=== PATIENT | female | born 1990 | race African-American/Black ===

== ENCOUNTER 2022-02-24 18:53 | Emergency (ER) | payer OTHER ==
[2022-02-24 19:21] VITALS: BP 111/60; PULSE 60; TEMP 98.6; BMI 21.4
[2022-02-24] MEDS ORDERED: SODIUM CHLORIDE 1,000 ML ONE (19:27)
[2022-02-24] MEDS ORDERED: KETOROLAC TROMETHAMINE 30 MG/1 ML VIAL IVPUSH ONE (19:27)
[2022-02-24] MEDS ORDERED: METOCLOPRAMIDE HCL INJECTION 10 MG/2 ML VIAL IVPB ONE (19:28)
[2022-02-24] MEDS ORDERED: KETOROLAC TROMETHAMINE 30 MG/1 ML VIAL ONE (19:47)
[2022-02-24] MEDS ORDERED: METOCLOPRAMIDE HCL INJECTION 10 MG/2 ML VIAL ONE (19:47)
[2022-02-24 20:33] LABS: ALBUMIN 3.8 g/dl (3.4-5.0); BILIRUBIN,TOTAL 0.6 mg/dl (0.2-1); CREATININE 0.9 mg/dl (0.55-1.3); TOT PROT 6.8 g/dl (6.4-8.2)
[2022-02-24] MEDS ORDERED: ALPRAZolam 1 MG TABLET PO PRN (20:44)
[2022-02-24 20:47] LABS: HEMATOCRIT 34.3 % (32.4-45.2); HEMOGLOBIN 11.9 G/dL (10.7-15.3); MCH 32.4 pg (25.7-33.7); MCHC 34.5 g/dl (32.0-36.0); MEAN CELL VOLUME 93.6 fl (80-96); MEAN PLT VOLUME 7.9 fl (7.5-11.1); RBC 3.66 10^6/uL (3.60-5.2); WHITE BLOOD COUNT 8.6 10^3/uL (4.0-10.8)
[2022-02-24 20:57] LABS: PLATELET ESTIMATE ADEQUATE
== END 2022-02-24 21:13 | disposition home or self-care (01) ==
LOC: FER 18:53
PROC: 3E033GC Introduction of Other Therapeutic Substance into Peripheral Vein, Percutaneous Approach (ICD-10-PCS; principal; 2022-02-24)
DX: R10.30 Lower abdominal pain, unspecified (principal)
CPT/HCPCS: 36415; 80053; 85025; 99284-25

== ENCOUNTER 2022-03-24 12:04 | Emergency (ER) | payer OTHER ==
[2022-03-24] MEDS ORDERED: KETOROLAC TROMETHAMINE 60 MG/2 ML VIAL IM ONE (12:37)
[2022-03-24] MEDS ORDERED: KETOROLAC TROMETHAMINE 60 MG/2 ML VIAL ONE (12:44)
[2022-03-24 12:48] VITALS: BP 120/50; PULSE 72; RESP 18; TEMP 98.4; BMI 20.9
== END 2022-03-24 13:40 | disposition home or self-care (01) ==
LOC: FER 12:04
PROC: 3E0233Z Introduction of Anti-inflammatory into Muscle, Percutaneous Approach (ICD-10-PCS; principal; 2022-03-24)
DX: N94.6 Dysmenorrhea, unspecified (principal)
CPT/HCPCS: 99283-25

== ENCOUNTER 2022-04-19 16:10 | Emergency (ER) | payer OTHER ==
[2022-04-19 17:48] VITALS: BP 116/60; PULSE 55; RESP 18; TEMP 98; BMI 22.3
[2022-04-19] MEDS ORDERED: KETOROLAC TROMETHAMINE 60 MG/2 ML VIAL IM ONE (17:50)
[2022-04-19] MEDS ORDERED: KETOROLAC TROMETHAMINE 60 MG/2 ML VIAL ONE (18:08)
== END 2022-04-19 18:34 | disposition home or self-care (01) ==
LOC: FER 16:10
PROC: 3E0233Z Introduction of Anti-inflammatory into Muscle, Percutaneous Approach (ICD-10-PCS; principal; 2022-04-19)
DX: N94.3 Premenstrual tension syndrome (principal)
CPT/HCPCS: 81003; 81015; 84703; 99284-25

== ENCOUNTER 2022-05-16 07:21 | Emergency (ER) | payer OTHER ==
[2022-05-16 07:28] VITALS: BP 105/54; PULSE 54; RESP 19; TEMP 98; BMI 22.3
[2022-05-16] MEDS ORDERED: SODIUM CHLORIDE 1,000 ML IV STA (07:35)
[2022-05-16] MEDS ORDERED: KETOROLAC TROMETHAMINE 30 MG/1 ML VIAL IVPUSH ONE (07:35)
[2022-05-16] MEDS ORDERED: FAMOTIDINE 20 MG/50 ML IVPB 20 MG/50 ML MG IVPB ONE ×2 (07:36→07:45)
[2022-05-16] MEDS ORDERED: ONDANSETRON 4 MG/2 ML VIAL IVPB ONE (07:36)
[2022-05-16] MEDS ORDERED: ONDANSETRON 4 MG/2 ML VIAL ONE (07:44)
[2022-05-16] MEDS ORDERED: KETOROLAC TROMETHAMINE 30 MG/1 ML VIAL ONE (07:45)
[2022-05-16 08:48] LABS: HEMATOCRIT 35.4 % (32.4-45.2); HEMOGLOBIN 12.1 G/dL (10.7-15.3); MCH 31.7 pg (25.7-33.7); MCHC 34.1 g/dl (32.0-36.0); MEAN PLT VOLUME 8.1 fl (7.5-11.1); PLATELET COUNT 295.3 10^3/uL (134-434); RBC 3.81 10^6/uL (3.60-5.2); RDW 14.4 % (11.6-15.6); WHITE BLOOD COUNT 9.1 10^3/uL (4.0-10.8)
[2022-05-16 09:05] LABS: BILIRUBIN,TOTAL 0.6 mg/dl (0.2-1); CALCIUM 9.1 mg/dl (8.5-10); CREATININE 0.7 mg/dl (0.55-1.3); TOT PROT 7.1 g/dl (6.4-8.2)
[2022-05-16 11:39] LABS: HCG,QUALITATIVE URINE Negative
[2022-05-16 11:54] LABS: EPITHELIAL CELLS FEW /hpf; URINE MUCUS 1+
== END 2022-05-16 11:56 | disposition home or self-care (01) ==
LOC: FER 07:21
PROC: 3E033GC Introduction of Other Therapeutic Substance into Peripheral Vein, Percutaneous Approach (ICD-10-PCS; principal; 2022-05-16)
PROC: 3E0333Z Introduction of Anti-inflammatory into Peripheral Vein, Percutaneous Approach (ICD-10-PCS; 2022-05-16)
PROC: 3E033GC Introduction of Other Therapeutic Substance into Peripheral Vein, Percutaneous Approach (ICD-10-PCS; 2022-05-16)
PROC: 3E0337Z Introduction of Electrolytic and Water Balance Substance into Peripheral Vein, Percutaneous Approach (ICD-10-PCS; 2022-05-16)
DX: N94.3 Premenstrual tension syndrome (principal)
CPT/HCPCS: 36415; 80053; 81003; 81015; 84703; 85027; 99284-25

== ENCOUNTER 2022-07-07 06:57 | Emergency (ER) | payer OTHER ==
[2022-07-07 07:02] VITALS: RESP 18; TEMP 98; BMI 22.3
[2022-07-07] MEDS ORDERED: SODIUM CHLORIDE 0.9% 500 ML INFUS.BAG IV ONE (07:06)
[2022-07-07] MEDS ORDERED: KETOROLAC TROMETHAMINE 30 MG/1 ML VIAL IVPUSH ONE (07:06)
[2022-07-07] MEDS ORDERED: KETOROLAC TROMETHAMINE 30 MG/1 ML VIAL ONE (07:18)
[2022-07-07] MEDS ORDERED: KETOROLAC TROMETHAMINE 30 MG/1 ML VIAL IM ONE (07:18)
[2022-07-07 10:16] VITALS: BP 136/74; PULSE 72
== END 2022-07-07 10:16 | disposition home or self-care (01) ==
LOC: FER 06:57
PROC: 3E0233Z Introduction of Anti-inflammatory into Muscle, Percutaneous Approach (ICD-10-PCS; principal; 2022-07-07)
DX: R10.9 Unspecified abdominal pain (principal)
CPT/HCPCS: 99284-25

== ENCOUNTER 2022-07-13 14:13 | Emergency (ER) | payer OTHER ==
[2022-07-13 14:26] VITALS: BP 127/72; PULSE 65; RESP 16; TEMP 99.8; BMI 22.4
[2022-07-13] MEDS ORDERED: IBUPROFEN 400 MG TABLET (FP) PO ONE ×2 (14:44→15:05)
[2022-07-13] MEDS ORDERED: guaiFENesin/CODEINE 5 ML UNIT-DOSE CUPS PO ONE (14:44)
[2022-07-13] MEDS ORDERED: ONDANSETRON *ODT* 4 MG TABLET SL ONE (14:44)
[2022-07-13] MEDS ORDERED: guaiFENesin/CODEINE 10 ML UNIT-DOSE CUPS ONE (15:06)
[2022-07-13] MEDS ORDERED: ONDANSETRON *ODT* 4 MG TABLET ONE (15:06)
[2022-07-13] MEDS ORDERED: ALBUTEROL SO4 HFA INHALER IH ONE ×2 (15:46→15:49)
[2022-07-13] MEDS ORDERED: ACETAMINOPHEN 1000 MG/100 ML BAG IVPB ONE (16:32)
[2022-07-13] MEDS ORDERED: ONDANSETRON 4 MG/2 ML VIAL IVPUSH ONE (16:32)
[2022-07-13] MEDS ORDERED: SODIUM CHLORIDE 1,000 ML IV STA (16:33)
[2022-07-13] MEDS ORDERED: ONDANSETRON 4 MG/2 ML VIAL ONE (16:46)
[2022-07-13] MEDS ORDERED: ACETAMINOPHEN INJECTION 100 ML IVPB ONE (16:46)
== END 2022-07-13 18:10 | disposition home or self-care (01) ==
LOC: FER 14:13
PROC: 3E033GC Introduction of Other Therapeutic Substance into Peripheral Vein, Percutaneous Approach (ICD-10-PCS; principal; 2022-07-13)
PROC: 3E0F7GC Introduction of Other Therapeutic Substance into Respiratory Tract, Via Natural or Artificial Opening (ICD-10-PCS; 2022-07-13)
DX: B34.9 Viral infection, unspecified (principal)
CPT/HCPCS: 0241U-QW; 99284-25; Q0162

== ENCOUNTER 2022-09-05 20:41 | Emergency (ER) | payer OTHER ==
[2022-09-05 20:57] VITALS: BP 114/55; PULSE 66; RESP 16; TEMP 97.6; BMI 22.6
[2022-09-05] MEDS ORDERED: KETOROLAC TROMETHAMINE 30 MG/1 ML VIAL IM ONE (21:02)
[2022-09-05] MEDS ORDERED: ONDANSETRON *ODT* 4 MG TABLET ONE (21:03)
[2022-09-05] MEDS ORDERED: KETOROLAC TROMETHAMINE 30 MG/1 ML VIAL ONE (21:03)
[2022-09-05] MEDS ORDERED: ONDANSETRON *ODT* 4 MG TABLET SL ONE (21:04)
== END 2022-09-05 21:14 | disposition home or self-care (01) ==
LOC: FER 20:41
PROC: 3E0233Z Introduction of Anti-inflammatory into Muscle, Percutaneous Approach (ICD-10-PCS; principal; 2022-09-05)
DX: N94.6 Dysmenorrhea, unspecified (principal)
CPT/HCPCS: 81025; 99284-25; Q0162

== ENCOUNTER 2022-10-03 20:24 | Emergency (ER) | payer OTHER ==
[2022-10-03] MEDS ORDERED: KETOROLAC TROMETHAMINE 30 MG/1 ML VIAL IM ONE (20:32)
[2022-10-03] MEDS ORDERED: KETOROLAC TROMETHAMINE 30 MG/1 ML VIAL ONE (20:33)
[2022-10-03 20:38] VITALS: BP 120/45; PULSE 72; RESP 16; TEMP 98.3; BMI 22.3
== END 2022-10-03 20:50 | disposition home or self-care (01) ==
LOC: FER 20:24
PROC: 3E023GC Introduction of Other Therapeutic Substance into Muscle, Percutaneous Approach (ICD-10-PCS; principal; 2022-10-03)
DX: N94.6 Dysmenorrhea, unspecified (principal)
CPT/HCPCS: 99284-25

== ENCOUNTER 2022-10-30 19:15 | Emergency (ER) | payer OTHER ==
[2022-10-30 19:33] VITALS: BP 105/56; PULSE 55; RESP 15; TEMP 98.2; BMI 21.9
[2022-10-30] MEDS ORDERED: KETOROLAC TROMETHAMINE 60 MG/2 ML VIAL IM ONE (19:55)
[2022-10-30] MEDS ORDERED: KETOROLAC TROMETHAMINE 60 MG/2 ML VIAL ONE (19:58)
== END 2022-10-30 20:25 | disposition home or self-care (01) ==
LOC: FER 19:15
PROC: 3E0233Z Introduction of Anti-inflammatory into Muscle, Percutaneous Approach (ICD-10-PCS; principal; 2022-10-30)
DX: N94.6 Dysmenorrhea, unspecified (principal)
CPT/HCPCS: 99284-25

== ENCOUNTER 2022-11-27 17:55 | Emergency (ER) | payer OTHER ==
[2022-11-27 18:11] VITALS: BP 114/70; PULSE 80; RESP 16; TEMP 97.9; BMI 22.4
[2022-11-27] MEDS ORDERED: KETOROLAC TROMETHAMINE 30 MG/1 ML VIAL IM ONE (18:32)
[2022-11-27] MEDS ORDERED: KETOROLAC TROMETHAMINE 30 MG/1 ML VIAL ONE (18:36)
== END 2022-11-27 18:49 | disposition home or self-care (01) ==
LOC: FER 17:55
PROC: 3E0233Z Introduction of Anti-inflammatory into Muscle, Percutaneous Approach (ICD-10-PCS; principal; 2022-11-27)
DX: N94.6 Dysmenorrhea, unspecified (principal); R10.9 Unspecified abdominal pain
CPT/HCPCS: 99284-25

== ENCOUNTER 2022-12-07 23:12 | Emergency (ER) | payer OTHER ==
[2022-12-07 23:20] VITALS: BP 115/40; PULSE 72; RESP 16; TEMP 97.7; BMI 22.4
[2022-12-07] MEDS ORDERED: CEPHALEXIN MONOHYDRATE 500 MG CAPSULE (UD) ONE (23:27)
[2022-12-07] MEDS ORDERED: CEPHALEXIN MONOHYDRATE 500 MG CAPSULE (UD) PO ONE (23:27)
== END 2022-12-07 23:33 | disposition home or self-care (01) ==
LOC: FER 23:12
DX: S61.210A Laceration without foreign body of right index finger without damage to nail, initial encounter (principal); W27.4XXA Contact with kitchen utensil, initial encounter; Y93.G1 Activity, food preparation and clean up
CPT/HCPCS: 99283-25

== ENCOUNTER 2022-12-23 21:47 | Emergency (ER) | payer OTHER ==
[2022-12-23 22:00] VITALS: BP 105/40; PULSE 65; RESP 16; TEMP 99; BMI 22.4
== END 2022-12-23 22:32 | disposition home or self-care (01) ==
LOC: FER 21:47
PROC: 0H98XZZ Drainage of Buttock Skin, External Approach (ICD-10-PCS; principal; 2022-12-23)
DX: L02.31 Cutaneous abscess of buttock (principal)
CPT/HCPCS: 99283-25

== ENCOUNTER 2022-12-25 20:09 | Emergency (ER) | payer OTHER ==
[2022-12-25 20:29] VITALS: BP 104/65; PULSE 78; RESP 16; TEMP 98.1; BMI 22.4
[2022-12-25] MEDS ORDERED: KETOROLAC TROMETHAMINE 60 MG/2 ML VIAL IM ONE (20:39)
[2022-12-25] MEDS ORDERED: KETOROLAC TROMETHAMINE 30 MG/1 ML VIAL ONE (20:51)
== END 2022-12-25 21:09 | disposition home or self-care (01) ==
LOC: FER 20:09
PROC: 3E0233Z Introduction of Anti-inflammatory into Muscle, Percutaneous Approach (ICD-10-PCS; principal; 2022-12-25)
DX: N94.6 Dysmenorrhea, unspecified (principal)
CPT/HCPCS: 99284-25

== ENCOUNTER 2023-01-22 13:13 | Emergency (ER) | payer OTHER ==
[2023-01-22 13:22] VITALS: BP 104/56; PULSE 57; RESP 18; TEMP 98.7; BMI 21.6
[2023-01-22] MEDS ORDERED: KETOROLAC TROMETHAMINE 30 MG/1 ML VIAL IM ONE (13:39)
[2023-01-22] MEDS ORDERED: KETOROLAC TROMETHAMINE 30 MG/1 ML VIAL ONE (14:01)
== END 2023-01-22 13:53 | disposition home or self-care (01) ==
LOC: FER 13:13
PROC: 3E0233Z Introduction of Anti-inflammatory into Muscle, Percutaneous Approach (ICD-10-PCS; principal; 2023-01-22)
DX: N94.6 Dysmenorrhea, unspecified (principal)
CPT/HCPCS: 99284-25

== ENCOUNTER 2023-02-18 23:04 | Emergency (ER) | payer OTHER ==
[2023-02-18 23:11] VITALS: RESP 16; BMI 21.6
[2023-02-18 23:28] VITALS: BP 109/67; PULSE 46; TEMP 98.6
[2023-02-18] MEDS ORDERED: KETOROLAC TROMETHAMINE 60 MG/2 ML VIAL ONE (23:33)
[2023-02-18] MEDS ORDERED: KETOROLAC TROMETHAMINE 60 MG/2 ML VIAL IM ONE (23:35)
== END 2023-02-18 23:55 | disposition home or self-care (01) ==
LOC: FER 23:04
PROC: 3E0333Z Introduction of Anti-inflammatory into Peripheral Vein, Percutaneous Approach (ICD-10-PCS; principal; 2023-02-18)
DX: N94.6 Dysmenorrhea, unspecified (principal)
CPT/HCPCS: 99284-25

== ENCOUNTER 2023-03-17 07:52 | Emergency (ER) | payer OTHER ==
[2023-03-17 07:58] VITALS: BP 125/66; PULSE 57; RESP 18; TEMP 99.1; BMI 21.8
[2023-03-17] MEDS ORDERED: KETOROLAC TROMETHAMINE 60 MG/2 ML VIAL IM ONE (08:38)
[2023-03-17] MEDS ORDERED: KETOROLAC TROMETHAMINE 60 MG/2 ML VIAL ONE (08:40)
[2023-03-17] MEDS ORDERED: ONDANSETRON *ODT* 4 MG TABLET ONE ×2 (08:40→08:42)
[2023-03-17] MEDS ORDERED: ONDANSETRON *ODT* 4 MG TABLET SL ONE (08:40)
== END 2023-03-17 09:39 | disposition home or self-care (01) ==
LOC: FER 07:52
PROC: 3E0233Z Introduction of Anti-inflammatory into Muscle, Percutaneous Approach (ICD-10-PCS; principal; 2023-03-17)
DX: R10.2 Pelvic and perineal pain (principal); R11.2 Nausea with vomiting, unspecified; N94.6 Dysmenorrhea, unspecified; D25.9 Leiomyoma of uterus, unspecified
CPT/HCPCS: 99284-25; Q0162

== ENCOUNTER 2023-04-12 05:23 | Emergency (ER) | payer OTHER ==
[2023-04-12 05:29] VITALS: BP 111/48; PULSE 61; RESP 18; TEMP 98.5; BMI 22.1
[2023-04-12] MEDS ORDERED: KETOROLAC TROMETHAMINE 60 MG/2 ML VIAL IM ONE (05:33)
[2023-04-12] MEDS ORDERED: KETOROLAC TROMETHAMINE 60 MG/2 ML VIAL ONE (05:33)
== END 2023-04-12 06:56 | disposition home or self-care (01) ==
LOC: FER 05:23
PROC: 3E0233Z Introduction of Anti-inflammatory into Muscle, Percutaneous Approach (ICD-10-PCS; principal; 2023-04-12)
DX: N94.6 Dysmenorrhea, unspecified (principal)
CPT/HCPCS: 99284-25

== ENCOUNTER 2023-07-06 10:00 | Emergency (ER) | payer OTHER ==
[2023-07-06 10:11] VITALS: BP 124/73; PULSE 66; RESP 16; TEMP 98.6; BMI 22.2
[2023-07-06] MEDS ORDERED: KETOROLAC TROMETHAMINE 15 MG/ML VIAL IVPUSH ONE (10:20)
[2023-07-06] MEDS ORDERED: ONDANSETRON 4 MG/2 ML VIAL IVPUSH ONE (10:20)
[2023-07-06] MEDS ORDERED: KETOROLAC TROMETHAMINE 30 MG/1 ML VIAL ONE (10:23)
[2023-07-06] MEDS ORDERED: ONDANSETRON 4 MG/2 ML VIAL ONE (10:24)
[2023-07-06] MEDS ORDERED: LACTATED RINGERS SOLUTION 1000 ML INFUS.BAG IV ONE (10:30)
[2023-07-06] MEDS ORDERED: ACETAMINOPHEN INJECTION 100 ML IVPB ONE (11:17)
[2023-07-06] MEDS ORDERED: ACETAMINOPHEN 1000 MG/100 ML BAG IVPB ONE (11:17)
== END 2023-07-06 11:34 | disposition home or self-care (01) ==
LOC: FER 10:00
PROC: 3E033NZ Introduction of Analgesics, Hypnotics, Sedatives into Peripheral Vein, Percutaneous Approach (ICD-10-PCS; principal; 2023-07-06)
PROC: 3E033GC Introduction of Other Therapeutic Substance into Peripheral Vein, Percutaneous Approach (ICD-10-PCS; 2023-07-06)
PROC: 3E033GC Introduction of Other Therapeutic Substance into Peripheral Vein, Percutaneous Approach (ICD-10-PCS; 2023-07-06)
DX: R10.30 Lower abdominal pain, unspecified (principal); R11.2 Nausea with vomiting, unspecified; N94.6 Dysmenorrhea, unspecified
CPT/HCPCS: 81003; 81015; 84703; 87086; 99284-25

== ENCOUNTER 2023-08-04 11:05 | Emergency (ER) | payer OTHER ==
[2023-08-04 11:27] VITALS: BP 109/61; PULSE 61; RESP 15; TEMP 98; BMI 22.2
[2023-08-04] MEDS ORDERED: KETOROLAC TROMETHAMINE 60 MG/2 ML VIAL IM ONE (11:33)
[2023-08-04] MEDS ORDERED: KETOROLAC TROMETHAMINE 60 MG/2 ML VIAL ONE (11:43)
== END 2023-08-04 11:59 | disposition home or self-care (01) ==
LOC: FER 11:05
PROC: 3E0233Z Introduction of Anti-inflammatory into Muscle, Percutaneous Approach (ICD-10-PCS; principal; 2023-08-04)
DX: N94.6 Dysmenorrhea, unspecified (principal)
CPT/HCPCS: 99284-25

== ENCOUNTER 2023-08-29 09:43 | Emergency (ER) | payer OTHER ==
[2023-08-29 09:48] VITALS: BP 122/57; PULSE 64; RESP 18; TEMP 98.1; BMI 22.3
[2023-08-29] MEDS ORDERED: KETOROLAC TROMETHAMINE 30 MG/1 ML VIAL IM ONE (09:54)
[2023-08-29] MEDS ORDERED: KETOROLAC TROMETHAMINE 30 MG/1 ML VIAL ONE (10:02)
== END 2023-08-29 10:20 | disposition home or self-care (01) ==
LOC: FER 09:43
PROC: 3E0233Z Introduction of Anti-inflammatory into Muscle, Percutaneous Approach (ICD-10-PCS; principal; 2023-08-29)
DX: N94.6 Dysmenorrhea, unspecified (principal); R05.9 Cough, unspecified; R09.81 Nasal congestion; R10.30 Lower abdominal pain, unspecified; Z20.822 Contact with and (suspected) exposure to COVID-19
CPT/HCPCS: 0241U-QW; 81025; 99284-25

== ENCOUNTER 2023-09-25 07:31 | Emergency (ER) | payer OTHER ==
[2023-09-25] MEDS ORDERED: ONDANSETRON 4 MG/2 ML VIAL ONE (07:34)
[2023-09-25] MEDS ORDERED: KETOROLAC TROMETHAMINE 15 MG/ML VIAL ONE (07:35)
[2023-09-25 08:06] VITALS: BP 129/83; PULSE 80; RESP 16; TEMP 98; BMI 29.2
[2023-09-25] MEDS: KETOROLAC TROMETHAMINE 15 MG/ML VIAL IVPUSH ONE (08:07)
[2023-09-25] MEDS: SODIUM CHLORIDE 1,000 ML IV STA (08:07)
[2023-09-25] MEDS: ONDANSETRON 4 MG/2 ML VIAL IVPB ONE (08:07)
[2023-09-25] MEDS ORDERED: ACETAMINOPHEN 325 MG TABLET (FP) ONE (09:47)
[2023-09-25] MEDS: ACETAMINOPHEN 325 MG TABLET (FP) PO ONE (09:47)
[2023-09-25 10:05] LABS: HCG,QUALITATIVE URINE Negative
== END 2023-09-25 11:12 | disposition home or self-care (01) ==
LOC: FER 07:31
PROC: 3E0333Z Introduction of Anti-inflammatory into Peripheral Vein, Percutaneous Approach (ICD-10-PCS; principal; 2023-09-25)
PROC: 3E033GC Introduction of Other Therapeutic Substance into Peripheral Vein, Percutaneous Approach (ICD-10-PCS; 2023-09-25)
PROC: 3E0337Z Introduction of Electrolytic and Water Balance Substance into Peripheral Vein, Percutaneous Approach (ICD-10-PCS; 2023-09-25)
DX: N94.6 Dysmenorrhea, unspecified (principal); R10.30 Lower abdominal pain, unspecified; R11.2 Nausea with vomiting, unspecified
CPT/HCPCS: 81003; 81015; 84703; 99284-25

== ENCOUNTER 2023-10-26 22:11 | Emergency (ER) | payer OTHER ==
[2023-10-26 22:25] VITALS: BP 99/37; PULSE 79; RESP 16; TEMP 98.2; BMI 26.6
== END 2023-10-27 01:00 | disposition left against medical advice (07) ==
LOC: FER 22:11
DX: Z53.21 Procedure and treatment not carried out due to patient leaving prior to being seen by health care provider (principal)
CPT/HCPCS: 99281-25

== ENCOUNTER 2023-11-22 09:12 | Emergency (ER) | payer OTHER ==
[2023-11-22 09:24] VITALS: BP 110/58; PULSE 51; RESP 16; TEMP 98.2; BMI 21.8
[2023-11-22] MEDS ORDERED: ONDANSETRON *ODT* 4 MG TABLET ONE (09:27)
[2023-11-22] MEDS: ONDANSETRON *ODT* 4 MG TABLET SL ONE (09:29)
[2023-11-22 10:32] LABS: CREATININE 0.8 mg/dl (0.6-1.3); POTASSIUM 3.9 mmol/L (3.5-5.1)
[2023-11-22 10:33] LABS: CALCIUM 9.1 mg/dl (8.5-10.1)
[2023-11-22] MEDS ORDERED: KETOROLAC TROMETHAMINE 30 MG/1 ML VIAL ONE (11:22)
[2023-11-22] MEDS: KETOROLAC TROMETHAMINE 30 MG/1 ML VIAL IM ONE (11:24)
== END 2023-11-22 11:50 | disposition home or self-care (01) ==
LOC: FER 09:12
PROC: 3E0233Z Introduction of Anti-inflammatory into Muscle, Percutaneous Approach (ICD-10-PCS; principal; 2023-11-22)
DX: R10.30 Lower abdominal pain, unspecified (principal); R11.2 Nausea with vomiting, unspecified; N93.9 Abnormal uterine and vaginal bleeding, unspecified
CPT/HCPCS: 36415; 80048; 81003; 81015; 84703; 87086; 99284-25; Q0162

== ENCOUNTER 2024-02-12 15:33 | Emergency (ER) | payer OTHER ==
[2024-02-12 15:43] VITALS: BP 90/53; PULSE 64; RESP 18; TEMP 97.7
[2024-02-12] MEDS ORDERED: KETOROLAC TROMETHAMINE 30 MG/1 ML VIAL ONE (15:45)
[2024-02-12] MEDS: KETOROLAC TROMETHAMINE 30 MG/1 ML VIAL IM ONE (15:49)
== END 2024-02-12 16:05 | disposition home or self-care (01) ==
LOC: FER 15:33
PROC: 3E0233Z Introduction of Anti-inflammatory into Muscle, Percutaneous Approach (ICD-10-PCS; principal; 2024-02-12)
DX: R10.30 Lower abdominal pain, unspecified (principal); D21.9 Benign neoplasm of connective and other soft tissue, unspecified
CPT/HCPCS: 99284-25

== ENCOUNTER 2024-03-09 08:27 | Emergency (ER) | payer OTHER ==
[2024-03-09 08:54] VITALS: BP 98/57; PULSE 58; RESP 16; TEMP 98.4; BMI 21.7
[2024-03-09 09:56] LABS: HCG,QUALITATIVE URINE NEGATIVE
[2024-03-09] MEDS: KETOROLAC TROMETHAMINE 30 MG/1 ML VIAL IM ONE (13:31)
== END 2024-03-09 10:00 | disposition left against medical advice (07) ==
LOC: FER 08:27
DX: R10.2 Pelvic and perineal pain (principal); N94.6 Dysmenorrhea, unspecified; R10.30 Lower abdominal pain, unspecified
CPT/HCPCS: 81003; 81015; 84703; 87086; 99283-25

== ENCOUNTER 2024-04-30 10:55 | Emergency (ER) | payer OTHER ==
[2024-04-30 11:04] VITALS: BP 112/64; PULSE 67; RESP 20; TEMP 98; BMI 21.3
[2024-04-30] MEDS ORDERED: KETOROLAC TROMETHAMINE 30 MG/1 ML VIAL IVPUSH ONE (11:32)
[2024-04-30] MEDS ORDERED: KETOROLAC TROMETHAMINE 30 MG/1 ML VIAL ONE (11:35)
[2024-04-30] MEDS: KETOROLAC TROMETHAMINE 30 MG/1 ML VIAL IM ONE (11:39)
[2024-04-30 11:45] LABS: EPITHELIAL CELLS 0-5 /hpf
== END 2024-04-30 12:54 | disposition home or self-care (01) ==
LOC: FER 10:55
PROC: 3E0233Z Introduction of Anti-inflammatory into Muscle, Percutaneous Approach (ICD-10-PCS; principal; 2024-04-30)
DX: N94.6 Dysmenorrhea, unspecified (principal); R11.0 Nausea
CPT/HCPCS: 81003; 81015; 84703; 87086; 99284-25

== ENCOUNTER 2024-05-26 07:24 | Emergency (ER) | payer SELFPAY ==
[2024-05-26] MEDS ORDERED: KETOROLAC TROMETHAMINE 30 MG/1 ML VIAL ONE (07:38)
[2024-05-26] MEDS: KETOROLAC TROMETHAMINE 15 MG/ML VIAL IM ONE (07:56)
[2024-05-26 08:04] VITALS: BP 110/65; PULSE 80; RESP 16; TEMP 98; BMI 25.9
== END 2024-05-26 09:02 | disposition home or self-care (01) ==
LOC: FER 07:24
PROC: 3E0133Z Introduction of Anti-inflammatory into Subcutaneous Tissue, Percutaneous Approach (ICD-10-PCS; principal; 2024-05-26)
DX: N94.6 Dysmenorrhea, unspecified (principal)
CPT/HCPCS: 84703; 99284-25

== ENCOUNTER 2024-05-28 02:48 | Emergency (ER) | payer OTHER ==
[2024-05-28] MEDS ORDERED: KETOROLAC TROMETHAMINE 30 MG/1 ML VIAL ONE (03:04)
[2024-05-28] MEDS: KETOROLAC TROMETHAMINE 60 MG/2 ML VIAL IM ONE (03:13)
[2024-05-28] MEDS: metroNIDAZOLE 250 MG TABLET PO ONE (03:38)
[2024-05-28 03:42] VITALS: BP 121/75; PULSE 75; RESP 17; TEMP 98; BMI 22.6
== END 2024-05-28 04:07 | disposition home or self-care (01) ==
LOC: FER 02:48
PROC: 3E0233Z Introduction of Anti-inflammatory into Muscle, Percutaneous Approach (ICD-10-PCS; principal; 2024-05-28)
DX: K08.59 Other unsatisfactory restoration of tooth (principal); K08.89 Other specified disorders of teeth and supporting structures
CPT/HCPCS: 99284-25

== ENCOUNTER 2024-06-23 08:25 | Emergency (ER) | payer OTHER ==
[2024-06-23 08:46] VITALS: BP 134/93; PULSE 56; RESP 18; TEMP 98.4; BMI 22.3
[2024-06-23] MEDS ORDERED: KETOROLAC TROMETHAMINE 30 MG/1 ML VIAL ONE (09:06)
[2024-06-23] MEDS: KETOROLAC TROMETHAMINE 30 MG/1 ML VIAL IM ONE (09:10)
== END 2024-06-23 10:15 | disposition home or self-care (01) ==
LOC: FER 08:25
PROC: 3E0133Z Introduction of Anti-inflammatory into Subcutaneous Tissue, Percutaneous Approach (ICD-10-PCS; principal; 2024-06-23)
DX: N94.6 Dysmenorrhea, unspecified (principal); R11.0 Nausea
CPT/HCPCS: 99284-25

== ENCOUNTER 2024-07-20 09:02 | Emergency (ER) | payer OTHER ==
[2024-07-20 09:13] VITALS: BP 130/79; PULSE 88; RESP 16; TEMP 99; BMI 10.1
[2024-07-20] MEDS ORDERED: KETOROLAC TROMETHAMINE 15 MG/ML VIAL ONE (09:17)
[2024-07-20] MEDS: KETOROLAC TROMETHAMINE 30 MG/1 ML VIAL IM ONE (09:20)
== END 2024-07-20 10:36 | disposition home or self-care (01) ==
LOC: FER 09:02
PROC: 3E0133Z Introduction of Anti-inflammatory into Subcutaneous Tissue, Percutaneous Approach (ICD-10-PCS; principal; 2024-07-20)
DX: N94.6 Dysmenorrhea, unspecified (principal); R11.0 Nausea
CPT/HCPCS: 99284-25

== ENCOUNTER 2024-09-11 11:17 | Emergency (ER) | payer OTHER ==
[2024-09-11 11:28] VITALS: BP 125/95; PULSE 61; RESP 18; TEMP 99; BMI 20.5
[2024-09-11] MEDS ORDERED: KETOROLAC TROMETHAMINE 30 MG/1 ML VIAL ONE (12:15)
[2024-09-11] MEDS: KETOROLAC TROMETHAMINE 30 MG/1 ML VIAL IM ONE (12:22)
== END 2024-09-11 12:31 | disposition home or self-care (01) ==
LOC: FER 11:17
PROC: 3E0233Z Introduction of Anti-inflammatory into Muscle, Percutaneous Approach (ICD-10-PCS; principal; 2024-09-11)
DX: D21.9 Benign neoplasm of connective and other soft tissue, unspecified (principal)
CPT/HCPCS: 99284-25

== ENCOUNTER 2025-02-18 07:19 | Emergency (ER) | payer OTHER ==
[2025-02-18 07:26] VITALS: BP 96/46; PULSE 51; RESP 18; TEMP 97.7; BMI 20.7
[2025-02-18 08:52] LABS: EPITHELIAL CELLS 0-5 /hpf
[2025-02-18] MEDS ORDERED: KETOROLAC TROMETHAMINE 30 MG/1 ML VIAL ONE (09:04)
[2025-02-18] MEDS: KETOROLAC TROMETHAMINE 15 MG/ML VIAL IM ONE (09:10)
== END 2025-02-18 09:29 | disposition home or self-care (01) ==
LOC: FER 07:19
PROC: 3E0233Z Introduction of Anti-inflammatory into Muscle, Percutaneous Approach (ICD-10-PCS; principal; 2025-02-18)
DX: N94.6 Dysmenorrhea, unspecified (principal)
CPT/HCPCS: 81003; 81015; 81025; 87086; 99284-25